=== PATIENT | male | born 1990 | race Caucasian/White ===

== ENCOUNTER 2025-07-23 23:29 | Emergency (ER) | payer OTHER ==
[~2025-07-23] VITALS: Ht 172.7 cm; Wt 77.1 kg
[2025-07-23 23:36] VITALS: BP 144/78
[2025-07-24 00:36] VITALS: BP 134/68; TEMP 98; O2SAT 98
== END 2025-07-24 00:44 | disposition home or self-care (01) ==
LOC: ER 23:45
DX: R06.02 Shortness of breath (principal); R00.2 Palpitations; F12.90 Cannabis use, unspecified, uncomplicated; Z79.899 Other long term (current) drug therapy; Z20.822 Contact with and (suspected) exposure to COVID-19
CPT/HCPCS: 71045; A4606; A4663